=== PATIENT | male | born 1980 | race Two or more races ===

== ENCOUNTER 2017-05-16 14:48 | Emergency (ER) | payer OTHER ==
[~2017-05-16] VITALS: Ht 172.7 cm; Wt 87.5 kg
[~2017-05-16 14:48] MED LIST: MECL25TA2 PO
[2017-05-16 14:53] VITALS: Ht 172.7 cm; Wt 87.5 kg
[2017-05-16] MEDS ORDERED: IBUPROFEN 800 MG TAB PO ONE (17:00)
--- NOTE | 2017-05-16 17:10 | RADRPT ---
PROCEDURE: Right knee x-ray CLINICAL INDICATION: Pain after fall TECHNIQUE: Multiple views of the knee were obtained. COMPARISON: None FINDINGS: There is normal mineralization. No acute fracture or dislocation is seen. There is no joint effusion. There are no significant degenerative changes. There is no significant soft tissue swelling. IMPRESSION: No definite abnormalities are identified. RPTAT:AAJJ Physician Madyson Date Time Electronically viewed and signed by Mauricio Allen Physician on 05/16/2017 17:10 /
--- NOTE | 2017-05-16 17:18 | ERD ---
ER Documentation Chief Complaint Date/Time DATE: 05/16/17 TIME: 17:17 Chief Complaint R KNEE PAIN X 3 DAYS; NO FALL HPI This 27-year-old patient presents to the emergency room this 37-year-old male presents to the emergency room for evaluation of atraumatic right-sided knee pain for the past 3 days.The patient localizes the pain to the middle portion of the knee and states that it is worse with bending of the knee. Denies any fevers associated with this ROS All systems reviewed and are negative except as per history of present illness. Medications Home Meds Active Scripts Meclizine Hcl* (Antivert*) 25 Mg Tablet, 25 MG PO Q6H Y for dizziness, #30 TAB Prov:IRMA BOSE NP 08/30/15 Allergies Allergies: Coded Allergies: No Known Allergy (Unverified , 08/30/15) PMhx/Soc Medical and Surgical Hx: pt denies Medical Hx, pt denies Surgical Hx History of Surgery: No Anesthesia Reaction: No Hx Neurological Disorder: No Hx Respiratory Disorders: No Hx Psychiatric Problems: No Hx Miscellaneous Medical Probl: No Hx Alcohol Use: Yes (OCCASIONAL) Hx Substance Use: No Hx Tobacco Use: No Smoking Status: Never smoker Physical Exam Vitals Vital Signs Date Time Temp Pulse Resp B/P Pulse Ox O2 Delivery O2 Flow Rate FiO2 05/16/17 14:53 98.3 80 18 131/80 97 Physical Exam Const: No acute distress Head: Atraumatic Eyes: Normal Conjunctiva ENT: Normal External Ears, Nose and Mouth. Neck: Full range of motion..~ No meningismus. Resp: Clear to auscultation bilaterally Cardio: Regular rate and rhythm, no murmurs Abd: Soft, non tender, non distended. Normal bowel sounds Skin: No petechiae or rashes Back: No midline or flank tenderness Ext: No swelling, no deformityNo cyanosis, or edema Neur: Awake and alert Psych: Normal Mood and Affect Results 24 hrs Current Medications Medications (Trade) Dose Ordered Sig/Pili Route PRN Reason Start Time Stop Time Status Last Admin Dose Admin Ibuprofen (Motrin) 800 mg ONCE ONCE PO 05/16/17 17:00 05/16/17 17:01 DC 05/16/17 17:05 Procedures/MDM X-ray Knee 3V Interpreted by me: Bones: [No fracture] Joints: [No dislocation] Foreign body: [None] This 37-year-old male presents to the ER for atraumatic right knee pain. He had no signs of trauma on my examination. He had full range of motion. The patient underwent a knee x-ray which does not show any fractures. The patient was placed in the knee immobilizer will be discharged at this time with a prescription for Motrin and instructions to get outpatient MRI from his primary care. Departure Diagnosis: Primary Impression: Knee pain Condition: Stable ARIEL GONZALES DO May 16, 2017 17:18
[2017-05-16] MEDS ORDERED: IBUP800T25 PO (17:19)
== END 2017-05-16 17:33 | disposition home or self-care (01) ==
LOC: FTE 14:48
DX: M25.561 Pain in right knee (principal)
CPT/HCPCS: 73562; Z7502; Z7610